=== PATIENT | male | born 1975 | race Caucasian/White ===

== ENCOUNTER 2018-01-29 17:43 | Emergency (ER) | payer OTHER ==
[2018-01-29] MEDS: LIDOCAINE 2% W/EPIN INJ 20ML **PRES FREE INJ (18:26)
== END 2018-01-29 18:34 | disposition home or self-care (01) ==
LOC: M ED 17:43
DX: K64.4 Residual hemorrhoidal skin tags (principal)
CPT/HCPCS: 46083